=== PATIENT | female | born 1995 | race Caucasian/White ===

== ENCOUNTER 2016-12-30 16:32 | Emergency (ER) | payer OTHER ==
[2016-12-30 16:38] VITALS: BP 106/61
[2016-12-30 18:09] LABS: APPEARANCE,URINE CLEAR; BILIRUBIN,URINE NEGATIVE (NEGATIVE); GLUCOSE, URINE NEGATIVE (NEGATIVE); KETONES,URINE NEGATIVE (NEGATIVE); LEUKOCYTE ESTERASE,URINE NEGATIVE (NEGATIVE); NITRITE,URINE NEGATIVE (NEGATIVE); PROTEIN,URINE NEGATIVE (NEGATIVE); URINE SPECIFIC GRAVITY 1.028; UROBILINOGEN,URINE NEGATIVE mg/dL (<2.0)
--- NOTE | 2016-12-30 18:42 | ER Document Report ---
ED Medical Screen (RME) - General Chief Complaint: Vaginal Bleeding Stated Complaint: VAGINAL BLEEDING Time Seen by Provider: 12/30/16 17:22 Mode of Arrival: Ambulatory Information source: Patient - HPI Patient complains to provider of: vag spotting Onset: This morning Onset/Duration: Gradual Quality of pain: No pain Associated Symptoms: None Exacerbated by: Denies Relieved by: Denies Recently seen / treated by doctor: No Notes: 12/30/16 18:40 Patient is a 2 para 1 female who is approximately 9-10 weeks based on dates. Patient has not yet seen [employer] [employer]. Patient presents with several episodes of vaginal spotting. Patient reports blood on the toilet paper after wiping. She has no other vaginal bleeding. No pelvic pain or back pain. No leakage of fluid. - Related Data Allergies/Adverse Reactions: amoxicillin Allergy (Verified 12/30/16 17:15) codeine Allergy (Verified 12/30/16 17:15) Penicillins Allergy (Verified 12/30/16 17:15) Home Medications: Current Home Medications Levothyroxine Sodium 50 mcg PO DAILY 12/30/16 [History] Melatonin [Melatin] 6 mg PO DAILY 12/30/16 [History] Paroxetine HCl [Paxil 20 mg Tablet] 20 mg PO DAILY 12/30/16 [History] Past Medical History - General Information source: Patient, [facility] Records - Social History Frequency of alcohol use: None Drug Abuse: None Pulmonary Medical History: Reports: Hx Asthma Renal/ Medical History: Denies: Hx Peritoneal Dialysis Psychiatric Medical History: Reports: Hx Depression Surgical Hx: Negative Review of Systems - Review of Systems Female Genitourinary: Vaginal bleeding -: Yes All other systems reviewed and negative Physical Exam - Vital signs Vitals: Temp Pulse Resp BP Pulse Ox 98.1 F 98 17 106/61 99 12/30/16 16:34 12/30/16 16:34 12/30/16 16:34 12/30/16 16:34 12/30/16 16:34 Interpretation: Normal - General General appearance: Appears well, Alert - HEENT Head: Normocephalic, Atraumatic Eyes: Normal Pupils: PERRL - Respiratory Respiratory status: No respiratory distress Chest status: Nontender Breath sounds: Normal Chest palpation: Normal - Cardiovascular Rhythm: Regular Heart sounds: Normal auscultation Murmur: No - Abdominal Inspection: Normal Distension: No distension Bowel sounds: Normal Tenderness: Nontender Organomegaly: No organomegaly - Back Back: Normal, Nontender - Extremities General upper extremity: Normal inspection, Nontender, Normal color, Normal ROM , Normal temperature General lower extremity: Normal inspection, Nontender, Normal color, Normal ROM , Normal temperature, Normal weight bearing. No: Nicolas's sign - Neurological Neuro grossly intact: Yes Cognition: Normal Orientation: AAOx4 Antonio Coma Scale Eye Opening: Spontaneous Antonio Coma Scale Verbal: Oriented Antonio Coma Scale Motor: Obeys Commands Antonio Coma Scale Total: 15 Speech: Normal Motor strength normal: LUE, RUE, LLE, RLE Sensory: Normal - Psychological Associated symptoms: Normal affect, Normal mood - Skin Skin Temperature: Warm Skin Moisture: Dry Skin Color: Normal Course - Vital Signs Vital signs: Temp Pulse Resp BP Pulse Ox 98.1 F 98 20 106/61 99 12/30/16 16:34 12/30/16 16:34 12/30/16 17:09 12/30/16 16:34 12/30/16 16:34 - Laboratory Laboratory results interpreted by me: 12/30/16 12/30/16 17:40 17:40 Beta HCG, Quant 7039.20 H Urine HCG, Qual POSITIVE H
--- NOTE | 2016-12-30 20:08 | RADIOLOGY REPORT (SQ) ---
EXAM DESCRIPTION: U/S OB TRANSVAG W/DOPPLER COMPLETED DATE/TIME: 12/30/2016 7:55 pm REASON FOR STUDY: vag bleed, hcg 7000 COMPARISON: None. TECHNIQUE: Transvaginal static and realtime grayscale images acquired of the pelvis. Additional dario cted spectral and color Doppler images recorded. All images stored on PACs. [id number] LIMITATIONS: None. FINDINGS: UTERUS: No masses. No anomalies. GESTATIONAL SAC: Measures 5 weeks 3 days YOLK SAC: Not identified POLE: Not identified RIGHT ADNEXA: Normal ovary with normal vascular flow. No adnexal free fluid. No adnexal masses. LEFT ADNEXA: Left ovary is not identified. No adnexal free fluid. No adnexal masses. FREE FLUID: Small amount of free fluid is identified. OTHER: No other significant finding. IMPRESSION: POSSIBLE EARLY INTRAUTERINE . BHCG LEVEL APPROPRIATE FOR ENDOMETRIAL FINDINGS. CONSIDER F/U BHCG AND/OR ULTRASOUND FOR VERIFICATION AND TO EXCLUDE ECTOPIC . Trimester of : First - 0 to 13 weeks. TECHNICAL DOCUMENTATION: JOB ID: [id number] [employer]- All Rights Reserved
== END 2016-12-30 20:30 | disposition home or self-care (01) ==
LOC: ER 16:32
DX: O20.0 Threatened abortion (principal); Z3A.01 Less than 8 weeks gestation of pregnancy; Z88.0 Allergy status to penicillin; Z88.6 Allergy status to analgesic agent
CPT/HCPCS: 36415; 76817; 81001; 81025; 84702; 93976; 99284